=== PATIENT | male | born 1945 | race Caucasian/White ===

== ENCOUNTER → 2020-10-25 11:56 | Outpatient (CLI) | payer MEDICARE, OTHER, SELFPAY ==
--- NOTE | 2020-10-25 | DI.US.S_ITS ---
PROCEDURE: US ABD AORTA ANEURYSM SCREEN INDICATIONS: SCREEN TECHNIQUE: Real time scanning was performed of the aorta and iliac arteries, with image documentation. COMPARISON: None. FINDINGS: Aorta: Proximal aortic diameter measures 1.9 cm. Mid-aorta measures 2.1 cm. Distal aortic diameter is 1.7 cm. Iliac arteries: Right common iliac artery measures 1 cm. Left common iliac artery measures 1.1 cm. IMPRESSION: No abdominal aortic aneurysm. Dictated by: Ronnie Romero M.D. on 10/25/2020 at 13:57 Approved by: Ronnie Romero M.D. on 10/25/2020 at 13:58
== END ==
PROVIDERS: PCP Internal Medicine; Referring Provider Internal Medicine; Visit Provider Internal Medicine
DX: Z13.6 Encounter for screening for cardiovascular disorders (principal)
CPT/HCPCS: 76706

== ENCOUNTER → 2021-02-01 17:02 | Outpatient (CLI) | payer MEDICARE, OTHER, SELFPAY ==
--- NOTE | 2021-02-01 | DI.MRI.S_ITS ---
PROCEDURE: MR LUMBAR SPINE WO CON INDICATIONS: Radiculopathy, lumbosacral region TECHNIQUE: Noncontrast sagittal T1 spin echo and T2 fast echo, sagittal STIR, axial T1 and T2 fast spin echo through the lumbar spine. In cases with scoliosis, additional coronal T2 fast spin echo may be performed. COMPARISON: No prior relevant studies are available for review at the time of this dictation. FINDINGS: Image quality: Excellent. Alignment and Curvature: There is minimal retrolisthesis at L2-L3 and L3-L4. Minimal anterolisthesis is seen at L5-S1. Bone Marrow: Marrow is of normal overall signal. No acute vertebral body compression fractures. Spinal Cord: Conus medullaris terminates at the T12-L1 level. Visualized cord demonstrates normal signal and size. Paraspinous Soft Tissues: No paravertebral masses. T12-L1: Normal appearance. L1-L2: No significant abnormality is seen. L2-L3: The disc height is well-preserved. Loss of disc signal is seen at this level. Moderate disc bulge is seen at this level, with a mild central disc protrusion. Mild to moderate facet hypertrophy is seen. Moderate bilateral neural foraminal narrowing can be seen, left worse than right. Moderate central canal narrowing is seen. L3-L4: Mild loss of disc height is seen. Loss of disc signal is seen. Moderate generalized disc bulge is seen. At least moderate facet hypertrophy is seen at this level. There is moderate to severe bilateral neural foraminal narrowing seen, left worse than right. There is a degree of compression seen upon the exiting nerve roots. Moderate to severe central canal narrowing is seen at this level. L4-L5: The disc height is well-preserved. Loss of disc signal is seen at this level. Moderate generalized disc bulge is seen. There is a superimposed central disc protrusion. There is moderate to severe bilateral neural foraminal narrowing seen. There is a degree of compression seen upon the exiting nerve roots. At least moderate central canal narrowing is seen at this level. L5-S1: Postoperative changes are seen at this level, with bilateral pedicle screws and vertical fixation rods. A disc spacer is seen. There has been removal of portions of the posterior elements. No significant neural foraminal or central canal narrowing can be seen. IMPRESSION: L5-S1 postoperative change. Multiple levels of degenerative change are seen, which are overall worst at the L4-L5 level. Dictated by: Rufus Styles M.D. on 02/01/2021 at 17:05 Approved by: Rufus Styles M.D. on 02/01/2021 at 17:08
== END ==
PROVIDERS: PCP Internal Medicine; Referring Provider Internal Medicine; Visit Provider Internal Medicine
DX: M47.26 Other spondylosis with radiculopathy, lumbar region (principal); Z98.1 Arthrodesis status
CPT/HCPCS: 72148

== ENCOUNTER 2023-08-06 09:24 | Day surgery (SDC) | payer MEDICARE, SELFPAY ==
--- NOTE | 2023-08-06 | PATH_ITS ---
[facility] Accession Number: [id number] No. of containers..02 Tissue . 01 Material submitted: . PART A: colon - SPLENIC FLEXURE POLYP PART B: colon - DESCENDING COLON POLYP . 01 Diagnosis: Part A: SPLENIC FLEXURE POLYP: Tubular adenoma. . Part B: DESCENDING COLON POLYP: Hyperplastic polyp. [facility] 08/11/2023 1428 Local . 01 Electronically signed: . Min Aranda MD, Pathologist NPI- [id number] . 01 Gross description: . Part A: SPLENIC FLEXURE POLYP: Received in formalin is 1 fragment of koo soft tissue measuring 1.1 x 0.7 x 0.7 cm. Specimen is sectioned and submitted in its entirety in 1 cassette. . Part B: DESCENDING COLON POLYP: Received in formalin is 1 fragment(s) of koo, soft tissue measuring 0.7 x 0.4 x 0.3 cm submitted entirely in 1 cassette(s) /[facility] 08/11/2023 1428 Local . 01 Pathologist provided ICD-10: D12.3, D12.4 . 01 CPT . 012983, 912975 Specimen Comment: A courtesy copy of this report has been sent to [phone] Performed at: [address] [facility] [address], [place], [place] [id number] MD Min Aranda MD Phone: [phone]
[2023-08-06] MEDS: LACTATED RINGERS 1,000 ML 42 ML IV (11:05)
--- NOTE | 2023-08-06 11:12 | P.HP_ITS ---
History of Present Illness History of Present Illness Date Patient Seen: 08/06/23 Time Patient Seen: 11:53 Chief complaint: Dx Colonoscopy w/poss bx Narrative: colon cancer screening. No current symptoms. [facility] Social History Smoking Status: Former smoker alcohol intake: current Meds Home Medications and Allergies Home Medications Medication Instructions Recorded Confirmed Type albuterol 90 mcg/actuation aerosol 2 mcg inhalation PRN Wheezing 08/06/23 History inhaler amlodipine 2.5 mg tablet 2.5 mg PO DAILY 08/06/23 08/06/23 History bisoprolol fumarate 5 mg tablet 5 mg PO DAILY 08/06/23 08/06/23 History cholecalciferol (vitamin D3) 50 50 mcg PO 08/06/23 History mcg (2,000 unit) disintegrating tablet coenzyme Q10 50 mg capsule (Co 50 mg PO 08/06/23 History Q-10) ezetimibe 10 mg tablet 10 mg PO DAILY 08/06/23 08/06/23 History fluticasone propionate 50 1 spray intranasal 08/06/23 History mcg/actuation nasal spray,suspension hydrochlorothiazide 12.5 mg tablet 12.5 mg PO DAILY 08/06/23 08/06/23 History losartan 100 mg tablet 100 mg PO DAILY 08/06/23 08/06/23 History rosuvastatin 40 mg tablet 40 mg PO ONCE PM 08/06/23 08/06/23 History triamcinolone acetonide 0.1 % 1 applic topical 08/06/23 History topical cream Allergies Allergy/AdvReac Type Severity Reaction Status Date / Time zolpidem AdvReac Mild Hallucinati Verified 08/06/23 11:20 ng Review of Systems Review of Systems ROS: Yes All systems reviewed with the patient and are negative except as otherwise documented Exam Const General: cooperative, healthy appearing and comfortable [facility] Head: normocephalic and atraumatic Eyes General: appearance normal, both eyes and all related structures Sclera: sclerae normal Neck Neck: trachea midline and No JVD Resp Effort & Inspection: normal respiratory effort and able to speak in complete sentences Cardio Rate: regular rate Rhythm: regular rhythm GI Palpation: soft and No tender Skin General: No elasticity normal and atrophy Neuro General: patient alert, patient awake, patient oriented x3 and meningeal signs present Cognition: normal cognition Speech: speech normal Psych Mental Status: mental status grossly normal Affect: normal affect Judgment: judgment good Assessment & Plan Assessment & Plan narrative: colon cancer screening with colonoscopy and anesthesia Time Spent With Patient Time with patient: less than 30 minutes
[2023-08-06 11:20] VITALS: BP 157/78; PULSE 55; RESP 21; TEMP 36.6; O2SAT 97
--- NOTE | 2023-08-06 12:37 | PM.OP.COLON ---
Operative Date/Time/Diagnoses Date of procedure: 08/06/23 Time of procedure: 12:37 Pre-op diagnosis: History of colon polyps Post-op diagnosis: same Procedure & Clinicians Study performed: Colonoscopy with cold snare polypectomy x2 Same procedure as scheduled: Yes Indications: History of colon polyps Surgeon: Lisy Brower Procedure Notes Procedure in detail: Preop diagnosis history of colon polyps Postop diagnosis: Same Operative procedure: Colonoscopy with cold snare polypectomy Surgeon: Sangeeta Brower MD Findings: Patient had 2 polyps 1 in the splenic flexure on a pedicle at 8 mm and 1 in the descending colon also on a pedicle 3 mm. Diverticulosis large and moderate size in the descending colon predominantly Procedure: Patient placed in lateral position. Rectal exam performed showing normal tone no masses. Colonoscope inserted into the rectum and advanced to ileocecal valve with minimal difficulty. Insufflation extraction of the scope and the above findings. Retroflex was included in the rectum. Impression: Colonoscopy with 2 cold snare polypectomies, 1 of the splenic flexure, 1 in the descending colon. Await pathology. Diverticulosis of the descending colon large moderate-sized Findings: divertiulosis and polyp(s) Specimen(s): other (Splenic flexure polypectomy on a pedicle 8 mm. Ascending colon on a pedicle 3 mm) Post-procedure Recommendations: Colonoscopy in 5 years Follow up: as needed Disposition: PACU
[2023-08-06 12:40] VITALS: BP 117/57; PULSE 51; RESP 21; TEMP 37.2; O2SAT 96
[2023-08-06 12:59] VITALS: BP 126/95; PULSE 54; RESP 24; TEMP 36.6; O2SAT 98
== END 2023-08-06 13:05 | disposition home or self-care (01) ==
PROVIDERS: PCP Internal Medicine; Referring Provider Surgery; Visit Provider Surgery
PROC: 0DJD8ZZ Inspection of Lower Intestinal Tract, Via Natural or Artificial Opening Endoscopic (ICD-10-PCS; CPT 45378; principal; 2023-08-06 10:45)
DX: Z12.11 Encounter for screening for malignant neoplasm of colon (principal); Z86.010 Personal history of colon polyps; K57.30 Diverticulosis of large intestine without perforation or abscess without bleeding; D12.4 Benign neoplasm of descending colon; K63.5 Polyp of colon
CPT/HCPCS: 45385; J2704